=== PATIENT | female | born 1960 | race Caucasian/White ===

== ENCOUNTER → 2018-07-13 | Outpatient (CLI) | payer OTHER ==
[~2018-07-13] MED LIST: ALBU90I INH; AMIT10 PO; AMIT50 PO; AMOX500 PO; ARIP10 PO; ASPI81EC PO; BUSP10 PO; BUSP5 PO; BUTONI; CELE200 PO; CLON.5; CLON.5 PO; CLON1 PO; CYCL10 PO; DIAZ10 PO; DIAZ2 PO; DIAZ5 PO; DOXY100 PO; DULO60 PO; ESTMED1.5T PO; HYDACE5; HYDACE5 PO; HYDACE5325 PO; IBUHYD PO; IBUP800 PO; LORA1 PO; MELO7.5 PO; META800; META800 PO; NAPR500 PO; OXYACE5T PO; PRAM.125 PO; PRAM.5 PO; PRED20 PO; PREG25 PO; PROM25 PO; PSEU120ER PO; RANI150 PO; RXLORA1 PO; TRAM50 PO; TRAZ50 PO
[2018-07-19 17:07] LABS: MDMA + METABOLITES Negative (Cutoff=250)
== END | disposition home or self-care (01) ==
LOC: LAB SHORT 15:15 → LAB EV 15:15
PROVIDERS: Physician Assistant
DX: Z51.81 Encounter for therapeutic drug level monitoring (principal); Z79.899 Other long term (current) drug therapy
CPT/HCPCS: G0480

== ENCOUNTER → 2021-12-05 | Outpatient (CLI) | payer OTHER ==
[2021-12-07 16:12] LABS: CORONAVIRUS (COVID19) CSH-NRL Negative (Negative)
== END | disposition home or self-care (01) ==
LOC: LAB SHORT 14:15 → LAB 14:15
PROVIDERS: Physician Assistant Medical
DX: Z20.822 Contact with and (suspected) exposure to COVID-19 (principal)
CPT/HCPCS: U0003

== ENCOUNTER → 2022-05-03 | Outpatient (CLI) | payer OTHER ==
[2022-05-05 12:07] LABS: HPV 16 Negative (Negative); HPV 18 Negative (Negative); HPV OTHER HR TYPES Negative (Negative)
== END ==
LOC: LAB 13:45 → LAB SHORT 13:45 → RAD SHORT 13:45
PROVIDERS: Obstetrics & Gynecology
DX: Z01.419 Encounter for gynecological examination (general) (routine) without abnormal findings (principal)
CPT/HCPCS: 87624; G0123

== ENCOUNTER → 2023-07-01 | Outpatient (CLI) | payer OTHER | LOC: LAB SHORT 12:13 → LAB 12:13 | DX: R82.79 Other abnormal findings on microbiological examination of urine (principal) | CPT/HCPCS: 87086 ==